=== PATIENT | female | born 1950 | race Caucasian/White ===

== ENCOUNTER 2017-05-23 13:16 | Inpatient (IN) | payer MEDICARE ==
[~2017-05-23] VITALS: Ht 162.6 cm; Wt 74.0 kg
[~2017-05-23 13:16] MED LIST: AMIT100 PO; ASPI325T PO; DULOXETINE HCL PO; LEVO.05 PO; PERC10TA27 PO; POLY17S PO; ROSU40 PO; TIZA4 PO; VENTAER INH
[2017-05-23 14:04] VITALS: BP 133/62; PULSE 77; RESP 21; TEMP 98.8; O2SAT 94
[2017-05-23 14:07] VITALS: BP 132/62; PULSE 69; RESP 21; TEMP 98.8; O2SAT 94
[2017-05-23] MEDS ORDERED: SODIUM CHLOR 0.9% 1000 ML INJ 1,000 ML IV SCH (14:21)
--- NOTE | 2017-05-23 14:40 | PD ---
HPI Chief Complaint: Altered Mental Status Time Seen by Provider: 14:35 Travel History International Travel<30 days: No Contact w/Intl Traveler<30days: No Traveled to known affect area: No History of Present Illness HPI 67-year-old female that presents to the ED for evaluation of altered mental status. Patient comes here by ambulance for evaluation of this. Per family member who is at bedside patient workup today very confused and not recognizing anybody. He reports that she's had some history of this in the past but none as severe as today. Patient does have a history of non-Hodgkin's lymphoma having had no chemotherapy in the past year. Unclear if remission. Patient does have significant history including CVA and some dementia. She denies any fevers chills or sweats. Per patient she feels "dizzy". Per patient she feels like she is spinning. She denies any headache or blurry vision or double vision. Nausea or vomiting. She does have multiple allergies to medication. Per family member she's had a history before of taking all of her medications and having symptoms like this before but the patient is adamant that she did not took any medications today. Family member also states that he is not sure about this this time around. PFSH Past Medical History Arthritis: Yes Anxiety: Yes Depression: Yes Cancer: Yes (lymphoma involving the pelvis and abdomen) Cardiovascular Problems: Yes (hypercholesterolemia) High Cholesterol: Yes COPD: Yes Cerebrovascular Accident: Yes Diabetes: No Endocrine: Yes Gastrointestinal Disorders: Yes (hemmorhoids) Glaucoma: No Genitourinary: No Hepatitis: No Hiatal Hernia: No Hypertension: Yes Immune Disorder: No Implanted Vascular Access Dvce: Yes Medical other: No Musculoskeletal: Yes Neurologic: Yes (Previous Stroke) Psychiatric: Yes Reproductive: No Respiratory: Yes Thyroid Disease: Yes Tetanus Vaccination: Unknown Past Surgical History Abdominal Surgery: Yes (appendectomy) Body Medical Devices: SPINAL STIMULATOR Cardiac Surgery: No Ear Surgery: No Endocrine Surgery: No Eye Surgery: No Genitourinary Surgery: No Gynecologic Surgery: Yes (hysterectomy) Hysterectomy: Yes Neurologic Surgery: Yes (MULTIPLE LAMINECTOMY (TOTAL 6)FUSION,CAGE) Pacemaker: No Thoracic Surgery: No Other Surgery: Yes Social History Alcohol Use: No Tobacco Use: Yes (1 PPD) Substance Use: No Allergies-Medications (Allergen,Severity, Reaction): Coded Allergies: Baclofen (Verified Allergy, Severe, ANXIETY, ITCH, 05/23/17) MRI PRECAUTION (Verified Allergy, Severe, MRI PRECAUTION SPINAL STIMULATOR , 05/23/17) SPINAL STIMULATOR. NOT MRI COMPATIBLE PER DAUGHTER 03/19/2014 VV Sulfa (Verified Allergy, Severe, ANXIETY, ITCH, 05/23/17) Fentanyl (Verified Allergy, Intermediate, NERVOUS, 05/23/17) Lexapro (Unverified Allergy, Intermediate, 05/23/17) Rash Methadone (Verified Allergy, Intermediate, NERVOUS, 05/23/17) Vicodin (Verified Allergy, Intermediate, BECAME NERVOUS & JITTERY, 05/23/17) Vioxx (Verified Allergy, Intermediate, NERVOUS, 05/23/17) ALSO ALLERGIC TO MOBIC Wellbutrin (Verified Allergy, Intermediate, NERVOUS, 05/23/17) Penicillin (Verified Adverse Reaction, Severe, INEFFECTIVE, 05/23/17) Uncoded Allergies: MOBIC (Adverse Reaction, Mild, JITTERS, 09/18/08) Reported Meds & Prescriptions Reported Meds & Active Scripts Active Polyethylene Glycol 3350 (Polyethylene Glycol) 17 Gm Pkg 17 Gm PO DAILY Zanaflex (Tizanidine HCl) 4 Mg Tab 2 Mg PO 2300 [DULOXETINE HCl] 30 MG Cap 30 Mg PO DAILY Elavil 100 Mg Tab (Amitriptyline HCl) 100 Mg Tab 100 Mg PO HS Ventolin Hfa (Albuterol Sulfate) 18 Gm Aero 2 Puff INH Q6 PRN * SHAKE WELL BEFORE USE * Reported Crestor (Rosuvastatin Calcium) 40 Mg Tab 1 Tab PO DAILY Percocet 10/325 (Oxycodone/Acetaminophen) Oxycodone 10/325 Acetaminophen Tab 1 Tab PO Q12 Synthroid (Levothyroxine Sodium) 50 Mcg Tab 150 Mcg PO DAILY Aspirin 325 Mg Tab (Aspirin) 325 Mg Tab 325 Mg PO DAILY Review of Systems Except as stated in HPI: all other systems reviewed are Neg Physical Exam Narrative GENERAL: SKIN: Warm and dry. HEAD: Atraumatic. Normocephalic. EYES: Pupils equal and round 4 mm reactive to light and accommodation. No scleral icterus. No injection or drainage. ENT: No nasal bleeding or discharge. Mucous membranes pink and moist. Tongue is midline. No uvula deviation. NECK: Trachea midline. No JVD. CARDIOVASCULAR: Regular rate and rhythm. No murmurs, S3, S4. RESPIRATORY: No accessory muscle use. Clear to auscultation. Breath sounds equal bilaterally. GASTROINTESTINAL: Abdomen soft, non-tender, nondistended. Hepatic and splenic margins not palpable. MUSCULOSKELETAL: Extremities without clubbing, cyanosis, or edema. No obvious deformities. Full range of motion of the upper or lower extremities bilaterally. 2+ pulses bilaterally. Sensation intact bilaterally. Patient does have what appears to be 4 out of 5 strength on the upper and lower extremities bilaterally but this appears to be chronic. No lumbar, thoracic, cervical spine tenderness to palpation. NEUROLOGICAL: Awake and alert and oriented to person and place. No obvious cranial nerve deficits. Motor grossly within normal limits. Five out of 5 muscle strength in the arms and legs. Normal speech. PSYCHIATRIC: Appropriate mood and affect; insight and judgment normal. Data Data Last Documented VS Vital Signs Date Time Temp Pulse Resp B/P Pulse Ox O2 Delivery O2 Flow Rate FiO2 05/23/17 16:59 81 18 133/61 80 18 156/71 85 20 147/67 05/23/17 15:53 98 05/23/17 14:07 Room Air 05/23/17 14:07 98.8 Orders Electrocardiogram (05/23/17 14:21) Complete Blood Count With Diff (05/23/17 14:21) Comprehensive Metabolic Panel (05/23/17 14:21) Ckmb (Isoenzyme) Profile (05/23/17 14:21) Troponin I (05/23/17 14:21) Prothrombin Time / Inr (Pt) (05/23/17 14:21) Act Partial Throm Time (Ptt) (05/23/17 14:21) Lipase (05/23/17 14:21) Urinalysis - C+S If Indicated (05/23/17 14:21) Magnesium (Mg) (05/23/17 14:21) Thyroid Stimulating Hormone (05/23/17 14:21) Chest, Single Ap (05/23/17 14:21) Ct Brain W/O Iv Contrast(Rout) (05/23/17 14:21) Iv Access Insert/Monitor (05/23/17 14:21) Ecg Monitoring (05/23/17 14:21) Oximetry (05/23/17 14:21) Orthostatic Vital Signs (05/23/17 14:21) Drug Screen, Random Urine (05/23/17 14:21) Alcohol (Ethanol) (05/23/17 14:21) Salicylates (Aspirin) (05/23/17 14:21) Tylenol (Acetaminophen) (05/23/17 14:21) Sodium Chlor 0.9% 1000 Ml Inj (Ns 1000 M (05/23/17 14:21) Cath For Specimen (05/23/17 14:21) Free Thyroxine (T4) (05/23/17 16:27) Free T3 (05/23/17 16:27) Admit Order (Ed Use Only) (05/23/17 17:10) Labs Laboratory Tests Test 05/23/17 05/23/17 15:00 16:00 White Blood Count 8.6 TH/MM3 Red Blood Count 4.77 MIL/MM3 Hemoglobin 13.4 GM/DL Hematocrit 40.7 % Mean Corpuscular Volume 85.3 FL Mean Corpuscular Hemoglobin 28.1 PG Mean Corpuscular Hemoglobin 32.9 % Concent Red Cell Distribution Width 15.1 % Platelet Count 348 TH/MM3 Mean Platelet Volume 9.9 FL Neutrophils (%) (Auto) 60.6 % Lymphocytes (%) (Auto) 25.2 % Monocytes (%) (Auto) 8.5 % Eosinophils (%) (Auto) 4.5 % Basophils (%) (Auto) 1.2 % Neutrophils # (Auto) 5.2 TH/MM3 Lymphocytes # (Auto) 2.2 TH/MM3 Monocytes # (Auto) 0.7 TH/MM3 Eosinophils # (Auto) 0.4 TH/MM3 Basophils # (Auto) 0.1 TH/MM3 CBC Comment DIFF FINAL Differential Comment Prothrombin Time 10.7 SEC Prothromb Time International 1.0 RATIO Ratio Activated Partial 29.5 SEC Thromboplast Time Sodium Level 137 MEQ/L Potassium Level 4.3 MEQ/L Chloride Level 106 MEQ/L Carbon Dioxide Level 25.5 MEQ/L Anion Gap 6 MEQ/L Blood Urea Nitrogen 25 MG/DL Creatinine 1.51 MG/DL Estimat Glomerular Filtration 34 ML/MIN Rate Random Glucose 81 MG/DL Calcium Level 9.2 MG/DL Magnesium Level 2.1 MG/DL Total Bilirubin 0.3 MG/DL Aspartate Amino Transf 13 U/L (AST/SGOT) Alanine Aminotransferase 14 U/L (ALT/SGPT) Alkaline Phosphatase 64 U/L Total Creatine Kinase 47 U/L Troponin I LESS THAN 0.02 NG/ML Total Protein 7.4 GM/DL Albumin 3.2 GM/DL Lipase 96 U/L Thyroid Stimulating Hormone 13.300 uIU/ML 3rd Gen Salicylates Level 5.5 MG/DL Acetaminophen Level LESS THAN 2.0 MCG/ML Ethyl Alcohol Level LESS THAN 3 MG/DL Urine Color YELLOW Urine Turbidity CLEAR Urine pH 5.5 Urine Specific [place] 1.014 Urine Protein NEG mg/dL Urine Glucose (UA) NEG mg/dL Urine Ketones NEG mg/dL Urine Occult Blood NEG Urine Nitrite NEG Urine Bilirubin NEG Urine Urobilinogen LESS THAN 2.0 MG/DL Urine Leukocyte Esterase TRACE Urine RBC LESS THAN 1 /hpf Urine WBC 1 /hpf Urine Squamous Epithelial <1 /hpf Cells Microscopic Urinalysis Comment CULT NOT INDICATED Urine Opiates Screen NEG Urine Barbiturates Screen NEG Urine Amphetamines Screen NEG Urine Benzodiazepines Screen NEG Urine Cocaine Screen NEG Urine Cannabinoids Screen NEG MDM Medical Decision Making Medical Screen Exam Complete: Yes Emergency Medical Condition: Yes Medical Record Reviewed: Yes Interpretation(s) CBC & BMP Diagram 05/23/17 15:00 LFTS WNL TSH elevated UA negative Troponin and CKMB negative Last Impressions Head CT 05/23/171420 Signed Impressions: Service Date/Time: Tuesday, May 23, 2017 15:04 - CONCLUSION: 1. Senescent changes. 2. Bilateral old basal ganglia lacunar infarcts. 3. No acute abnormality. Ankur Waite MD Chest X-Ray 05/23/171420 Signed Impressions: Service Date/Time: Tuesday, May 23, 2017 14:28 - CONCLUSION: Mild interstitial edema. Osvaldo Sal MD FACR Differential Diagnosis Alter mental status versus CVA versus UTI versus sepsis versus infection versus dehydration versus ACS Narrative Course 67-year-old female that presents to the ED for evaluation of altered mental status. Patient was properly examined and was found to have signs and symptoms consistent with upper mental status. Unclear etiology. She does have multiple risk factors including previous CVA, dementia and history of cancer. At this time recommend labs and imaging. At this time she has no neurological deficits other than what appears to be chronic strength weakness in the upper and lower extremities. Labs and imaging showed no sign of acute disease other than elevated TSH. Free T4 and 53 were ordered by me. Family and patient were told that do recommend admission for further evaluation and stabilization of the patient secondary to her altered mental status. At this time she appears to be more oriented and she does not want to be admitted. Family does want her to stay. At this time admission was placed to Dr. Cota. Diagnosis Primary Impression: Altered mental status Qualified Code: R41.82 - Altered mental status, unspecified altered mental status type Admitting Information Admitting Physician Requests: Chetan Last May 23, 2017 14:40
--- NOTE | 2017-05-23 15:00 | RADRPT ---
EXAM DATE/TIME: 05/23/2017 14:28 [facility] COMPARISON: CHEST SINGLE AP, March 17, 2014, 16:12. INDICATIONS : Altered mental status MEDICAL HISTORY : Hypertension. Chronic obstructive pulmonary disease. SURGICAL HISTORY : Infusaport ENCOUNTER: Initial ACUITY: 1 day PAIN SCORE: 0/10 LOCATION: Bilateral chest FINDINGS: [id number] and spinal stimulator noted. There is mild interstitial edema evident. There is no al veolar consolidation, pleural effusion or pneumothorax. CONCLUSION: Mild interstitial edema. Osvaldo Sal MD FACR on May 23, 2017 at 14:50 Board Certified Radiologist. This report was verified electronically.
[2017-05-23 15:36] LABS: AUTOMATED NEUTROPHIL # 5.2 TH/MM3 (1.8-7.7); BASOPHIL # 0.1 TH/MM3 (0-0.2); BASOPHIL % 1.2 % (0.0-2.0); EOSINOPHIL # 0.4 TH/MM3 (0-0.4); EOSINOPHIL % 4.5 % (0.0-4.0); HEMATOCRIT 40.7 % (35.0-46.0); HEMO FLAGS DIFF FINAL; LYMPH % 25.2 % (9.0-44.0); LYMPHOCYTE # 2.2 TH/MM3 (1.0-4.8); MEAN CELL VOLUME 85.3 FL (80.0-100.0); MEAN CORPUSCULAR HEMOGLOBIN 28.1 PG (27.0-34.0); MEAN CORPUSCULAR HGB CONC 32.9 % (32.0-36.0); MONO % 8.5 % (0.0-8.0); NEUT % 60.6 % (16.0-70.0); PLATELET COUNT 348 TH/MM3 (150-450); RED BLOOD COUNT 4.77 MIL/MM3 (4.00-5.30); RED CELL DISTRIBUTION WIDTH 15.1 % (11.6-17.2); WHITE BLOOD COUNT 8.6 TH/MM3 (4.0-11.0)
[2017-05-23 15:39] LABS: APTT (PATIENT) 29.5 SEC (24.3-30.1); PROTHROMBIN TIME - PATIENT 10.7 SEC (9.8-11.6)
--- NOTE | 2017-05-23 15:52 | RADRPT ---
EXAM DATE/TIME: 05/23/2017 15:04 [facility] COMPARISON: CT BRAIN W/O CONTRAST, March 21, 2014, 9:24. INDICATIONS : Altered mental status, confusion today. RADIATION DOSE: 56.35 CTDIvol (mGy) MEDICAL HISTORY : Stroke. Lymphoma. Hypertension. SURGICAL HISTORY : None. ENCOUNTER: Initial ACUITY: 1 day PAIN SCALE: 0/10 LOCATION: Bilateral head TECHNIQUE: Multiple contiguous axial images were obtained of the head. Using automated exposure control and adj ustment of the mA and/or kV according to patient size, radiation dose was kept as low as reasonably a chievable to obtain optimal diagnostic quality images. DICOM format image data is available electro nically for review and comparison. FINDINGS: CEREBRUM: There is moderate diffuse volume loss. There are bilateral basal ganglia lacunar infarcts. Moderate p eriventricular hypodensities consistent with ischemic white matter demyelination. The ventricles are within expected size given degree of atrophy. No evidence of midline shift, mass lesion, hemorrhage or acute infarction. No extra-axial fluid collections are seen. POSTERIOR FOSSA: The cerebellum and brainstem are intact. The 4th ventricle is midline. The cerebellopontine angle i s unremarkable. EXTRACRANIAL: The visualized portion of the orbits is intact. SKULL: The calvaria is intact. No evidence of skull fracture. CONCLUSION: 1. Senescent changes. 2. Bilateral old basal ganglia lacunar infarcts. 3. No acute abnormality. Ankur Waite MD on May 23, 2017 at 15:44 Board Certified Radiologist. This report was verified electronically.
[2017-05-23 15:53] VITALS: BP 132/62; PULSE 78; RESP 18; O2SAT 98
[2017-05-23 15:53] LABS: ANION GAP 6 MEQ/L (5-15); AST (GOT) 13 U/L (15-37); BICARBONATE 25.5 MEQ/L (21.0-32.0); BLOOD UREA NITROGEN 25 MG/DL (7-18); CHLORIDE 106 MEQ/L (98-107); GLOMERULAR FILTRATION RATE 34 ML/MIN (>89); MAGNESIUM 2.1 MG/DL (1.5-2.5); POTASSIUM 4.3 MEQ/L (3.5-5.1); SODIUM (NA) 137 MEQ/L (136-145)
[2017-05-23 16:01] LABS: ACETAMINOPHEN LESS THAN 2.0 MCG/ML (10.0-30.0); ALKALINE PHOSPHATASE 64 U/L (45-117); ALT (GPT) 14 U/L (10-53); TOTAL BILIRUBIN ADULT 0.3 MG/DL (0.2-1.0)
[2017-05-23 16:13] LABS: CREATINE KINASE 47 U/L (26-192)
[2017-05-23 16:31] LABS: AMPHETAMINE, URINE NEG (NEG); BARBITURATES, URINE NEG (NEG); COCAINE, URINE NEG (NEG)
[2017-05-23 16:34] LABS: BLOOD, URINE NEG (NEG); COMMENT (UR) CULT NOT INDICATED; CULTURE IF INDICATED CULT NOT INDICATED; GLUCOSE,URINE NEG (NEG); KETONE, URINE NEG (NEG); NITRITE,URINE NEG (NEG); PH, URINE 5.5 (5.0-8.5); SQUAMOUS EPITHELIAL CELL URINE <1 /hpf (0-5); URINE COLOR YELLOW (YELLW/STRAW)
[2017-05-23 16:59] VITALS: BP_SYST 133; BP_SYST 147; BP_SYST 156; BP_DIAS 61; BP_DIAS 67; BP_DIAS 71; RESP 18; RESP 20
[2017-05-23] MEDS ORDERED: BISACODYL 10 MG SUPP RECTAL PRN (19:00)
[2017-05-23] MEDS ORDERED: SENNOSIDES 8.6 MG TAB PO PRN (19:00)
[2017-05-23] MEDS ORDERED: NALOXONE HCL 0.4 MG/ML AMP IV PRN (19:00)
[2017-05-23] MEDS ORDERED: MAGNESIUM HYDROXIDE SUSP 30 ML CUP PO PRN (19:00)
[2017-05-23] MEDS ORDERED: LACTULOSE SYRUP 20 GM/30 ML CUP PO PRN (19:00)
[2017-05-23] MEDS ORDERED: ZOLPIDEM TARTRATE 5 MG TAB PO PRN (19:00)
[2017-05-23] MEDS ORDERED: SODIUM CHLORIDE 0.9% FLUSH 10 ML FLUSH IV FLUSH PRN (19:00)
[2017-05-23] MEDS ORDERED: ALBUTEROL SULFATE 90 MCG/ACT HFA 8 GM INHALER INH PRN (19:00)
[2017-05-23] MEDS ORDERED: ALBUTEROL SULFATE 90 MCG/ACT HFA 18 GM INHALER INH PRN (19:45)
[2017-05-23] MEDS ORDERED: AMITRIPTYLINE HCL 100 MG TAB PO SCH (21:00)
[2017-05-23] MEDS ORDERED: SODIUM CHLORIDE 0.9% FLUSH 10 ML FLUSH IV FLUSH SCH (21:00)
[2017-05-23] MEDS ORDERED: DOCUSATE SODIUM 50 MG/SENNA 8.6 MG TAB PO SCH (21:00)
[2017-05-23 22:52] LABS: FREE T3 1.41 PG/ML (2.18-3.98); FREE T4 0.73 NG/DL (0.76-1.46)
[2017-05-24] MEDS ORDERED: LEVOTHYROXINE SODIUM 150 MCG TAB PO SCH (06:00)
[2017-05-24] MEDS ORDERED: oxyCODONE/ACETAMINOPHEN 10 MG/325 MG TAB PO SCH (09:00)
[2017-05-24] MEDS ORDERED: DULOXETINE 30 MG PO SCH (09:00)
[2017-05-24] MEDS ORDERED: DULoxetine HCl DR 30 MG CAP PO SCH (09:00)
[2017-05-24] MEDS ORDERED: ROSUVASTATIN CALCIUM PO SCH (09:00)
[2017-05-24] MEDS ORDERED: POLYETHYLENE GLYCOL 17 GM PKG PO SCH (09:00)
[2017-05-24] MEDS ORDERED: ATORVASTATIN 80 MG TAB PO SCH (09:00)
[2017-05-24] MEDS ORDERED: ASPIRIN 325 MG TAB PO SCH (09:00)
--- NOTE | 2017-05-24 13:25 | EKG ---
Date Performed: 05/23/2017 Time Performed: 15:47:48 PTAGE: 67 years EKG: Sinus rhythm NONSPECIFIC T-WAVE ABNORMALITY BORDERLINE ECG PREVIOUS TRACING : 03/17/2014 16.05 Compared to prior tracing no significant change DOCTOR: Pawel Lim Interpretating Date/Time 05/24/2017 13:19:04
== END 2017-05-23 20:08 | disposition left against medical advice (07) | DRG 948 ==
LOC: NEPC 13:16 → NEDA 17:12 → OBSVTOIN 18:57
PROVIDERS: ADMIT Family Medicine; ATTEND Family Medicine
DX: R41.82 Altered mental status, unspecified (principal); F03.90 Unspecified dementia, unspecified severity, without behavioral disturbance, psychotic disturbance, mood disturbance, and anxiety; E78.00 Pure hypercholesterolemia, unspecified; R94.6 Abnormal results of thyroid function studies; F17.210 Nicotine dependence, cigarettes, uncomplicated; Z85.72 Personal history of non-Hodgkin lymphomas; Z86.73 Personal history of transient ischemic attack (TIA), and cerebral infarction without residual deficits; Z88.5 Allergy status to narcotic agent; Z88.0 Allergy status to penicillin; Z88.2 Allergy status to sulfonamides; Z88.8 Allergy status to other drugs, medicaments and biological substances
CPT/HCPCS: 70450; 71010; 80053; 80307; 81001; 82550; 83690; 83735; 84439; 84443; 84481; 84484; 85025; 85610; 85730; 93005; 96360; J7030; P9612